=== PATIENT | female | born 1965 | race Caucasian/White ===

== ENCOUNTER 2022-12-25 00:57 | Emergency (ER) | payer BC ==
[~2022-12-25] VITALS: Ht 167.6 cm; Wt 73.0 kg
[2022-12-25 01:01] VITALS: BP 142/76; O2SAT 98
[2022-12-25] MEDS ORDERED: FAMOTIDINE 20MG/2ML VIAL IV ONE (01:15)
[2022-12-25] MEDS ORDERED: ONDANSETRON HCL 4MG/2ML INJ IV ONE (01:15)
[2022-12-25] MEDS ORDERED: SODIUM CHLORIDE 0.9% 1,000 ML IV SCH (01:15)
[2022-12-25] MEDS ORDERED: DIPHENHYDRAMINE 25MG CAPSULE PO ONE (01:15)
[2022-12-25] MEDS ORDERED: EPIN0.3P3 IM (02:48)
[2022-12-25] MEDS ORDERED: FAMO20TA8 MT (02:48)
[2022-12-25] MEDS ORDERED: DIPH25TA62 MT (02:48)
[2022-12-25 03:16] VITALS: PULSE 77; RESP 16; TEMP 98.6
== END 2022-12-25 03:18 | disposition home or self-care (01) ==
LOC: ER 00:57
DX: T78.40XA Allergy, unspecified, initial encounter (principal); E11.9 Type 2 diabetes mellitus without complications; Z00.00 Encounter for general adult medical examination without abnormal findings; X58.XXXA Exposure to other specified factors, initial encounter
CPT/HCPCS: 96361; 96374; 96375; 99284; Q0163; J3490; J2405; Z7610